=== PATIENT | female | born 1995 | race Caucasian/White ===

== ENCOUNTER 2019-08-07 22:39 | Emergency (ER) | payer OTHER ==
--- NOTE | 2019-08-07 23:08 | ED ---
Psychiatric Complaint - HPI Summary HPI Summary: Patient is a 23 y/o F presenting to [facility] under 941 status for SI. Police state that the patient and the patient's boyfriend had gotten into an argument over text, the boyfriend stopped responding and the patient had made statements of SI. Boyfriend called 911 as a result. In the room, patient does state that she was experiencing SI and had stated that she had wanted to, "go to sleep forever ". Patient notes that she was experiencing SI a few months ago as a result of a similar situation as well. She notes that she had cut her right inner forearm with a shaving razor this evening and reports Hx of self-cutting. Patient states that while she was having SI, she claims that she would not act on her thoughts. She currently reports not having SI. Patient denies having a specific plan of suicide but then also states that if she were to by suicide, she would probably overdose on pills. Patient is on Lexapro 5 mg. She states that she took two shots of alcohol 1-2 hours [employer] as well as half of a marijuana edible 1 hour [employer]. Currently, she states that she feels sober. Patient is from [place], family lives there. Boyfriend lives in [place]. Patient has no physical complaints, no vaginal bleeding and no vaginal discharge. She notes that she has only been sexually active with her boyfriend. Last sexual activity with boyfriend was two days ago when they were in [place] together for spring. LNMP was 07/23/19. Patient is on control, she does not use condoms. Home medications and allergies are reviewed. Home Medications Medication Instructions Recorded Confirmed Type Escitalopram * [Lexapro 5 mg (NF)] 5 mg PO DAILY 08/07/19 08/07/19 History - History Of Current Complaint Hx Obtained From: Patient Onset/Duration: Resolved Timing: Intermittent Episode Lasting Character: Depressed Aggravating Factor(s): Recent Stress Has Suicidal: Reports: Thoughts, Demonstrates Gesture - Allergies/Home Medications Allergies/Adverse Reactions: Allergies Allergy/AdvReac Type Severity Reaction Status Date / Time No Known Allergies Allergy Verified 08/07/19 22:43 Home Medications: Home Medications Escitalopram * [Lexapro 5 mg (NF)] 5 mg PO DAILY 08/07/19 [History Confirmed ] Levonorgestrel-Ethin Estradiol [Vienva-28 Tablet] 1 tab PO DAILY 08/07/19 [ History Confirmed 08/07/19] PMH/Surg Hx/FS Hx/Imm Hx Endocrine/Hematology History: Denies: Hx Diabetes Psychiatric History: Reports: Hx Anxiety, Hx Depression Infectious Disease History: No Infectious Disease History: Denies: Traveled Outside the [place] in Last 30 Days - Family History Known Family History: Positive: Other - anxiety - Social History Occupation: Student Alcohol Use: Occasionally Substance Use Type: Reports: Marijuana Smoking Status (MU): Never Smoked Tobacco Review of Systems Positive: Other - abrasions to right inner forearm Positive: Depressed - SI All Other Systems Reviewed And Are Negative: Yes Physical Exam - Summary Physical Exam Summary: Constitutional: Well-developed, Well-nourished, Alert. (-) Distressed Skin: Warm, Dry; four very superficial abrasion to the right inner forearm are noted HENT: Normocephalic; Atraumatic Eyes: Conjunctiva normal Neck: Musculoskeletal ROM normal neck. (-) JVD, (-) Stridor, (-) Tracheal deviation Cardio: Rhythm regular, rate normal, Heart sounds normal; Intact distal pulses; The pedal pulses are 2+ and symmetric. Radial pulses are 2+ and symmetric. Pulmonary/Chest wall: Effort normal. (-) Respiratory distress, (-) Wheezes, (-) Rales Abd: Soft, (-) tenderness, (-) Distension, (-) Guarding, (-) Rebound Musculoskeletal: (-) Edema Neuro: Alert, Oriented x3 Psych: Patient is slightly withdrawn, mood is labile, shows poor judgment Triage Information Reviewed: Yes Vital Signs On Initial Exam: Initial Vitals Temp Pulse Resp BP Pulse Ox 99.1 F 100 16 141/93 100 08/07/19 22:40 08/07/19 22:40 08/07/19 22:40 08/07/19 22:40 08/07/19 22:40 Vital Signs Reviewed: Yes Procedures - Sedation Patient Received Moderate/Deep Sedation with Procedure: No Diagnostics - Vital Signs Vital Signs Temp Pulse Resp BP Pulse Ox 08/07/19 22:40 99.1 F 100 16 141/93 100 - Laboratory Lab Statement: Any lab studies that have been ordered have been reviewed, and results considered in the medical decision making process. Course/Dx - Course Course Of Treatment: Patient is a 23 y/o F presenting to [facility] under 941 status for SI. Police state that the patient and the patient's boyfriend had gotten into an argument over text, the boyfriend stopped responding and the patient had made statements of SI. Boyfriend called 911 as a result. In the room, patient does state that she was experiencing SI and had stated that she had wanted to, "go to sleep forever". Patient notes that she was experiencing SI a few months ago as a result of a similar situation as well. She notes that she had cut her right inner forearm with a shaving razor this evening and reports Hx of self-cutting. Patient states that while she was having SI, she claims that she would not act on her thoughts. She currently reports not having SI. Patient denies having a specific plan of suicide but then also states that if she were to by suicide, she would probably overdose on pills. Patient is on Lexapro 5 mg. She states that she took two shots of alcohol 1-2 hours [employer] as well as half of a marijuana edible 1 hour [employer]. Currently, she states that she feels sober. Patient is from [place], family lives there. Boyfriend lives in [place]. Patient has no physical complaints. On physical exam, four very superficial abrasion to the right inner forearm are noted. Patient is slightly withdrawn, mood is labile, shows poor judgment. Serum alcohol and beta hcg were negative, patient was medically cleared for MHE. MHE was conducted. Patient's case was reviewed by Dr. Forrester, patient to be discharged to home. Dx of depressive disorder. - Differential Dx/Clinical Impression Provider Diagnosis: Depressive disorder - Physician Notifications Discussed Care Of Patient With: Luis Forrester Time Discussed With Above Provider: 01:21 Instructed by Provider To: Other - Patient's case was reviewed by Dr. Forrester, patient to be discharged to home. Dx of depressive disorder. Discharge ED - Sign-Out/Discharge Documenting (check all that apply): Patient Departure - discharge - Discharge Plan Condition: Stable Disposition: HOME Referrals: No Primary Care Phys,NOPCP [Primary Care Provider] - - Billing Disposition and Condition Condition: STABLE Disposition: Home - Attestation Statements Document Initiated by Scribe: Yes Documenting Scribe: YAQUELIN CANNON Provider For Whom Scribe is Documenting (Include Credential): JAMESON MACKENZIE MD Scribe Attestation: I, YAQUELIN CANNON, scribed for JAMESON MACKENZIE MD on 08/08/19 at 0431. Scribe Documentation Reviewed: Yes Provider Attestation: The documentation as recorded by the scribe, YAQUELIN CANNON accurately reflects the service I personally performed and the decisions made by me, JAMESON MACKENZIE MD Status of Scribe Document: Viewed
[2019-08-07 23:59] LABS: HCG Pregnancy < 0.60 mIU/mL
[2019-08-08 00:08] LABS: Alcohol < 10 mg/dL (<10)
[2019-08-08 00:57] LABS: Urine Benzodiazepine Screen None Detected (None Detect); Urine Opiates Screen Presumptive Positive (None Detect)
[2019-08-08 02:11] VITALS: BP 115/68
== END 2019-08-08 01:45 | disposition home or self-care (01) ==
LOC: ED 22:39
DX: F32.9 Major depressive disorder, single episode, unspecified (principal); Z79.899 Other long term (current) drug therapy
CPT/HCPCS: 36415; 80307; 80320; 84702; 99284; G0480